=== PATIENT | female | born 1945 | race African-American/Black ===

== ENCOUNTER 2022-10-26 06:51 | Emergency (ER) | payer MEDICARE, MEDICAID ==
[~2022-10-26] VITALS: Ht 160 cm; Wt 55.0 kg
[2022-10-26] MEDS ORDERED: TOPUD PO (09:00)
[2022-10-26] MEDS ORDERED: KETOROLAC 60MG/2ML VIAL IM ONE (09:00)
[2022-10-26 09:28] VITALS: BP 148/83
== END 2022-10-26 09:29 | disposition home or self-care (01) ==
LOC: ER 06:51
DX: M54.50 Low back pain, unspecified (principal); I10 Essential (primary) hypertension
CPT/HCPCS: 72100; 99283

== ENCOUNTER 2023-10-23 19:01 | Emergency (ER) | payer MEDICARE, OTHER ==
[~2023-10-23] VITALS: Ht 162.6 cm; Wt 55.0 kg
[~2023-10-23 19:01] MED LIST: TOPUD PO
[2023-10-23 19:44] VITALS: BP 172/94; PULSE 93; RESP 17; TEMP 98.8; O2SAT 99
[2023-10-23] MEDS ORDERED: HYDR99LO MT (20:01)
[2023-10-23] MEDS ORDERED: DIPH25TA62 MT (20:01)
[2023-10-23] MEDS ORDERED: P50 MT (20:01)
[2023-10-23] MEDS ORDERED: ACYC200C31 MT (20:03)
== END 2023-10-23 20:36 | disposition home or self-care (01) ==
LOC: ER 19:01
DX: B02.9 Zoster without complications (principal); I10 Essential (primary) hypertension
CPT/HCPCS: 99283